=== PATIENT | male | born 1955 | race Two or more races ===

== ENCOUNTER 2020-10-30 07:49 | Day surgery (SDC) | payer BC, SELFPAY ==
[2020-10-26 12:33] VITALS: BMI 31.5
--- NOTE | 2020-10-28 13:53 | P.CONAN_ITS ---
Documented by User: Sharon Matthewsney 10/28/20 13:56 HPI - Anesthesia Eval Consult details Narrative: 64yo M for Colonoscopy [facility] Past Medical History Medical History HTN (hypertension) Surgical History Surgical History History of surgical amputation of finger of right hand Hx of colonoscopy Hx of shoulder surgery Social History Social History Are you a primary disabilities caregiver to a significant other at home: No Do you presently have visiting nurse or other home services: No Have you been hit, kicked, punched, or otherwise hurt by someone within the past year? If so, by whom?: No Advance Directives: No Advance Directives Information Provided: No Advance Directives on File: No Recently lost weight without trying: No Meds Allergies Allergy/AdvReac Type Severity Reaction Status Date / Time No Known Allergies Allergy Verified 10/30/20 08:04 Home Medications Medication Instructions Recorded Confirmed Last Taken Type lisinopril 1 tab PO DAILY 10/26/20 10/26/20 10/30/20 06:30 History uvycqfzpizgv-unooyfho-wujwnc 1 tab PO DAILY 10/26/20 10/26/20 Unknown History [Multivitamin 50 Plus] Exam Exam Date and Time: October 28, 2020 1353 Height,Weight and Vital Signs: Height 5 ft 10 in Weight 99.79 kg Assessment and Plan Assessment Anesthesia Assessment: Chart Reviewed Documented by User: Vitaly Leblanc MD 10/30/20 09:25 [facility] Past Medical History Medical History HTN (hypertension) Surgical History Surgical History History of surgical amputation of finger of right hand Hx of colonoscopy Hx of shoulder surgery Social History Social History Are you a primary disabilities caregiver to a significant other at home: No Do you presently have visiting nurse or other home services: No Have you been hit, kicked, punched, or otherwise hurt by someone within the past year? If so, by whom?: No Advance Directives: No Advance Directives Information Provided: No Advance Directives on File: No Recently lost weight without trying: No Meds Allergies Allergy/AdvReac Type Severity Reaction Status Date / Time No Known Allergies Allergy Verified 10/30/20 08:04 Home Medications Medication Instructions Recorded Confirmed Last Taken Type lisinopril 1 tab PO DAILY 10/26/20 10/26/20 10/30/20 06:30 History xxxwniorornn-aepoghsx-xyxcqu 1 tab PO DAILY 10/26/20 10/26/20 Unknown History [Multivitamin 50 Plus] Exam Airway Mallampati Class: II TM Dist: >3cm Neck ROM: Full Loose/Missing/Broken Teeth: No Heart: RRR Lungs: NL Assessment and Plan Assessment Anesthesia Assessment: Anesthesia Plan Discussed and Chart Reviewed Final Anesthetic Review NPO: Yes ASA Class: II Final Preanesthetic Review: No Changes in Pt Med Stat, Meds/Allgs Chart Re viewed, Consent Obtained/Reviewed and Anes Risks/Benef Reviewed Patient Risk: Low Procedure Risk: Low Anesthetic Plan Anesthetic Plan: MAC: Disposition: Standard PACU
[2020-10-30 08:24] VITALS: BP 147/88; PULSE 74; RESP 18; TEMP 36.8; O2SAT 95
[2020-10-30] MEDS: Lactated Ringers 1,000 ML 100 ML IVCONT (08:27)
[2020-10-30 10:49] VITALS: BP 104/74; PULSE 85; RESP 16; TEMP 36.6; O2SAT 94
--- NOTE | 2020-10-30 10:58 | PM.OP ---
Brief Operative Note Date of Service: 10/30/20 Pre-op diagnosis: Screening Post-op diagnosis: other (Colon polyps) Procedure: Colonoscopy to the cecum with snare polypectomy Surgeon: Alejandro Benson Anesthesia: MAC Estimated blood loss (mL): 0 Pathology: other (A. Proximal ascending colon polyp) Condition: stable Disposition: PACU
[2020-10-30 11:05] VITALS: BP 108/78; PULSE 71; RESP 16; TEMP 36.6; O2SAT 94
--- NOTE | 2020-10-30 11:58 | OP_ITS ---
SURGEON: Alejandro Benson MD INDICATIONS: This patient presents for followup of personal history of tubular adenomas of the colon, family history of colon cancer, and colorectal cancer screening. Full consent was obtained from him for the procedure, including risks of bleeding and perforation. PREOPERATIVE DIAGNOSIS: POSTOPERATIVE DIAGNOSIS: PROCEDURE PERFORMED: Colonoscopy to the cecum with snare polypectomy. ESTIMATED BLOOD LOSS: COMPLICATIONS: ANESTHESIA: Monitored anesthesia care. ASSISTANTS: SPECIMENS: PREOPERATIVE DIAGNOSES: Colorectal cancer screening, personal history of tubular adenoma of the colon, family history of colon cancer. POSTOPERATIVE DIAGNOSES: Colorectal cancer screening, personal history of tubular adenoma of the colon, family history of colon cancer, colon polyps, diverticulosis, and internal hemorrhoids. DESCRIPTION OF PROCEDURE: The patient was placed in the left lateral decubitus position. The digital rectal exam revealed no abnormalities. The Olympus video pediatric colonoscope was entered into the rectum and advanced easily to the cecum. Once in the cecum, I did identify normal-appearing cecal pouch with appendiceal orifice and a normal-appearing ileocecal valve. The entire cecum was well visualized. On a fold adjacent to the inferior portion of the ileocecal valve was a flat approximately 12 mm adenomatous-appearing polyp. It did not appear suspicious for malignancy. In the very proximal ascending colon was an approximately 6 to 8 mm grossly adenomatous polyp, which was snared and recovered by suction. The polypectomy site appeared clean, without any sign of residual polyp nor bleeding. The polyp on the fold adjacent to the inferior portion of the ileocecal valve was very difficult to visualize. It was continuously in the cecum and very difficult to get a look at other than when I was able to pull back on the fold with a biopsy forceps. I opted not to biopsy it as I did want to remove it completely. However, I could not visualize it at all without pulling the fold back with a biopsy forceps. The scope was then slowly withdrawn assessing all mucosal surfaces carefully. Preparation was excellent. I did not visualize any other polyps, colitis, or angiodysplasia. There was a mild amount of sigmoid diverticulosis. In the rectum, scope was retroflexed visualizing internal hemorrhoids, but no other pathology. The scope was straightened and withdrawn from the patient. At that point, I used the double-channel Olympus video gastroscope in hopes of reaching the cecum and then using both the biopsy forceps to pull back on the fold and then being able to use a snare to remove the polyp through the 2 separate channels. The scope was advanced into the rectum and then advanced to the level of just distal to the ileocecal valve. Abdominal wall pressure was used. I did use a biopsy forceps to pull back on the fold near the inferior portion of the ileocecal valve, but could not get close enough with the scope to snare the polyp. A considerable amount of time was spent trying. At that point, the scope was withdrawn from the patient. He tolerated the procedure well and was returned to recovery area in stable condition. IMPRESSION: 1. Colon polyps, status post snare polypectomy of proximal ascending colon polyp, but I was unable to remove the polyp in the cecum. 2. Diverticulosis. 3. Internal hemorrhoids. PLAN: The results of the pathology will be checked. At this point, we will need to reschedule his procedure and obtain a double-channel colonoscope in hopes of removing the flat polyp in the cecum. He was advised not to use any aspirin and NSAIDs for 1 week. This has all been discussed with his . MD QUE Paris/LV / [id number] MTDD
== END 2020-10-30 11:35 | disposition home or self-care (01) ==
PROVIDERS: PCP Internal Medicine; Visit Provider Internal Medicine
PROC: 0DJD8ZZ Inspection of Lower Intestinal Tract, Via Natural or Artificial Opening Endoscopic (ICD-10-PCS; CPT 45378; principal; 2020-10-30 09:00)
DX: Z12.11 Encounter for screening for malignant neoplasm of colon (principal); Z80.0 Family history of malignant neoplasm of digestive organs; Z86.010 Personal history of colon polyps; D12.2 Benign neoplasm of ascending colon; K63.5 Polyp of colon; K57.30 Diverticulosis of large intestine without perforation or abscess without bleeding; K64.8 Other hemorrhoids; I10 Essential (primary) hypertension; Z79.899 Other long term (current) drug therapy
CPT/HCPCS: 45385; 88305; J1610

== ENCOUNTER 2021-02-03 07:12 | Day surgery (SDC) | payer BC, SELFPAY ==
--- NOTE | 2021-02-02 10:58 | P.CONAN_ITS ---
HPI - Anesthesia Eval Consult details Narrative: 65yo M for Colonoscopy s/p colo with MAC 10/2020. Repeat d/t inability to remove flat polyp PMFSH Past Medical History Medical History (Updated 12/04/20 @ 10:41 by Margie Mckeon) History of colon polyps HTN (hypertension) Surgical History Surgical History History of surgical amputation of finger of right hand Hx of colonoscopy Hx of shoulder surgery Social History Social History Are you a primary neonatal intensive care nurse to a significant other at home: No Do you presently have visiting nurse or other home services: No Patient Tobacco Use Status: Never used Tobacco Second Hand Smoke Exposure: No Use of substances other than those prescribed or required for medical reasons: No Are you DNR?: No Advance Directives: No Advance Directives Information Provided: Yes Meds Allergies Allergy/AdvReac Type Severity Reaction Status Date / Time No Known Allergies Allergy Verified 12/04/20 10:32 Home Medications Medication Instructions Recorded Confirmed Last Taken Type lisinopril 1 tab PO DAILY 10/26/20 12/04/20 02/03/21 History eohsddjovdee-sgyxbxwn-sagnpi 1 tab PO DAILY 10/26/20 12/04/20 Unknown History [Multivitamin 50 Plus] Exam Exam Date and Time: February 02, 2021 1058 Assessment and Plan Assessment Anesthesia Assessment: Chart Reviewed
[2021-02-03 07:30] VITALS: BP 128/83; PULSE 76; RESP 16; TEMP 36.7; O2SAT 97; BMI 30.1
[2021-02-03] MEDS: Lactated Ringers 1,000 ML 100 ML IVCONT (07:46)
--- NOTE | 2021-02-03 08:30 | P.CONAN_ITS ---
[facility] Past Medical History Medical History (Updated 12/04/20 @ 10:41 by Margie Mckeon) History of colon polyps HTN (hypertension) Surgical History Surgical History History of surgical amputation of finger of right hand Hx of colonoscopy Hx of shoulder surgery Social History Social History Are you a primary interior plant caretaker to a significant other at home: No Do you presently have visiting nurse or other home services: No Patient Tobacco Use Status: Never used Tobacco Second Hand Smoke Exposure: No Use of substances other than those prescribed or required for medical reasons: No Are you DNR?: No Advance Directives: No Advance Directives Information Provided: Yes Meds Allergies Allergy/AdvReac Type Severity Reaction Status Date / Time No Known Allergies Allergy Verified 12/04/20 10:32 Active Medications: Current Medications Generic Name Dose Route Start Last Admin Trade Name Freq PRN Reason Stop Dose Admin Lactated Ringer's 1,000 mls @ 100 mls/hr 02/03/21 07:30 02/03/21 07:46 Lr IVCONT 100 mls/hr .Q10H JAZMYN Administration Sodium Biphosphate/Sodium Phosphate 133 ml 02/03/21 07:20 Sodium Phosphate,[place]-Dibasic 133 Ml Enema HI ONCE PRN Poor Colonoscopy Prep Results Home Medications Medication Instructions Recorded Confirmed Last Taken Type lisinopril 1 tab PO DAILY 10/26/20 12/04/20 02/03/21 History teejkoxbvkqy-aiktthbw-unyymg 1 tab PO DAILY 10/26/20 12/04/20 Unknown History [Multivitamin 50 Plus] Exam Exam Date and Time: February 03, 2021 0830 Height,Weight and Vital Signs: Height 5 ft 10 in Weight 95.254 kg Last Vital Signs Temp 98.1 F 02/03/21 07:30 Pulse 76 02/03/21 07:30 Resp 16 02/03/21 07:30 BP 128/83 02/03/21 07:30 Pulse Ox 97 02/03/21 07:30 Airway Mallampati Class: III TM Dist: >3cm Neck ROM: Full Heart: RRR Lungs: CTA
[2021-02-03 09:56] VITALS: BP 96/60; PULSE 72; RESP 16; TEMP 36.4; O2SAT 95
--- NOTE | 2021-02-03 10:00 | PM.OP ---
Brief Operative Note Date of Service: 02/03/21 Pre-op diagnosis: Screening Post-op diagnosis: other (Colon polyps) Procedure: Colonoscopy to the cecum and TI with snare polypectomy, and bx/removal of polyps Surgeon: Alejandro Benson Anesthesia: MAC Was an Lumite Injector used for this Procedure?: No Estimated blood loss (mL): 3.0 Pathology: other (A. Cecal polyp B. Transverse colon polyp C. Cecal polyp alongside inferior portion of ICVV) Condition: stable Disposition: PACU
[2021-02-03 10:10] VITALS: BP 119/85; PULSE 86; RESP 16; TEMP 36.4; O2SAT 96
--- NOTE | 2021-02-03 10:33 | OP_ITS ---
SURGEON: Alejandro Benson MD INDICATIONS: The patient presents for followup of personal history of tubular adenoma of the colon and family history of colon cancer. He did have a colonoscopy earlier this year and a polyp was seen in the cecum, but was unable to be removed. Full consent has been obtained from him for this, including risks of bleeding and perforation. PREOPERATIVE DIAGNOSIS: POSTOPERATIVE DIAGNOSIS: PROCEDURE PERFORMED: ESTIMATED BLOOD LOSS: COMPLICATIONS: ANESTHESIA: Medication used, monitored anesthesia care. ASSISTANTS: SPECIMENS: PREOPERATIVE DIAGNOSES: Personal history of tubular adenoma of the colon, colorectal cancer screening, and family history of colon cancer. POSTOPERATIVE DIAGNOSES: Personal history of tubular adenoma of the colon, colorectal cancer screening, and family history of colon cancer, colon polyps, diverticulosis, and internal hemorrhoids. PROCEDURES PERFORMED: Colonoscopy to the cecum and terminal ileum with snare polypectomy, and biopsy and removal of polyps. DESCRIPTION OF PROCEDURE: The patient was placed in the left lateral decubitus position. The digital rectal exam revealed no abnormalities. The Olympus video pediatric colonoscope was fitted with the Endocuff. The scope was advanced into the rectum and advanced easily into the cecum. Once in the cecum, I did identify cecal pouch with appendiceal orifice. There was a 3 mm polyp in the cecum, which was biopsied and completely removed with cold biopsy forceps. The ileocecal valve appeared normal. The terminal ileum was cannulated and appeared normal. I was then able to visualize the previously known polyp in the cecum, on the inside of a fold adjacent to the inferior portion of the ileocecal valve. The polyp was well visualized and appeared to be grossly adenomatous. It was approximately 10 to 12 mm in diameter and was then snared and recovered by suction. The polypectomy site appeared clean, without any sign of residual polyp nor bleeding. The scope was slowly withdrawn assessing all mucosal surfaces carefully. Preparation was excellent. In the transverse colon was a 3 mm polyp, which was biopsied and completely removed with cold biopsy forceps. I did not visualize any other polyps, colitis, or angiodysplasia. There was a mild amount of sigmoid diverticulosis. In the rectum, scope was retroflexed visualizing internal hemorrhoids, but no other pathology. The rectal mucosa appeared normal. The scope was straightened out and withdrawn from the patient. He tolerated the procedure well and was returned to the recovery area in stable condition. IMPRESSION: 1. Colon polyps, status post snare polypectomy, and biopsy removal. 2. Diverticulosis. 3. Internal hemorrhoids. PLAN: The results of the pathology will be checked. Given his history and family history, I would recommend a repeat colonoscopy in 3 years for further surveillance. He was advised not to use any aspirin and NSAIDs for 1 week. This has been discussed with his . MD QUE Paris/LV / [id number]
== END 2021-02-03 11:00 | disposition home or self-care (01) ==
PROVIDERS: PCP Internal Medicine; Visit Provider Internal Medicine
PROC: 0DJD8ZZ Inspection of Lower Intestinal Tract, Via Natural or Artificial Opening Endoscopic (ICD-10-PCS; CPT 45378; principal; 2021-02-03 08:20)
DX: Z12.11 Encounter for screening for malignant neoplasm of colon (principal); Z86.010 Personal history of colon polyps; Z80.0 Family history of malignant neoplasm of digestive organs; D12.0 Benign neoplasm of cecum; D12.3 Benign neoplasm of transverse colon; K57.30 Diverticulosis of large intestine without perforation or abscess without bleeding; K64.8 Other hemorrhoids; I10 Essential (primary) hypertension; Z79.899 Other long term (current) drug therapy
CPT/HCPCS: 45385; 45380; 88305

== ENCOUNTER → 2021-02-18 13:51 | Outpatient (REF) | payer BC, SELFPAY ==
--- NOTE | 2021-02-18 14:00 | CA_ITS ---
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 The visually estimated ejection fraction is >70%. - No obvious valvular pathology seen on this study. - There is mild dilatation of the ascending aorta measuring 4.10 cm and mild dilatation of the aortic arch measuring 3.60 cm. Findings Left Ventricle Normal left ventricular cavity size. There is mildly increased left ventricular wall thickness. The left ventricular systolic function is hyperdynamic. The visually estimated ejection fraction is >70%. There is no evidence of regional wall motion abnormalities. Diastolic function is normal for age. Right Ventricle Normal right ventricular cavity size and systolic function. Atria Both atria are normal in size. Aortic Valve There is a normal trileaflet aortic valve. There is no aortic valve stenosis. There is no aortic valve regurgitation. Mitral Valve The mitral valve appears normal. There is no mitral valve regurgitation. There is no mitral valve stenosis. Pulmonic Valve The pulmonic valve was not well visualized. Tricuspid Valve Normal tricuspid valve structure. There is mild tricuspid valve regurgitation. The pulmonary artery systolic pressure is normal. Great Vessels There is mild dilatation of the ascending aorta measuring 4.10 cm and mild dilatation of the aortic arch measuring 3.60 cm. Venous The inferior vena cava is normal in size and collapses greater than 50% with inspiration. Pericardium/Pleural There is no evidence of pericardial effusion. Prior Study Comparison Changes noted compared to prior study dated: 11/10/2008. Change in aortic dimensions. Recommendations, Care & Conclusions No obvious valvular pathology seen on this study. Measurements 2D Linear Measurements IVSd: 1.19 0.6-0.9/0.6-1.0 cm LVIDd: 5.22 3.9-5.3/4.2-5.9 cm LVIDd Index: 2.47 2.4-3.2/2.2-3.1 cm/m2 LVIDs: 2.85 2.0-3.6 cm LVPWd: 1.20 0.7-1.1 cm Ao Root: 3.60 2.1-3.5 cm LA Diam: 4.00 2.7-3.8/3.0-4.0 cm LAIDs Index: 1.90 1.5-2.3 cm/m2 LV Mass: 310.41 67-162/88-224 g LV Mass Index: 147.12 43-95/49-115 g/m2 LVOT Diam: 2.30 3.0+(-)1.3 cm 2D Systolic Function EF 4C: 67.20 >55% EF 2C: 53.40 >55% Mitral Valve MV Pk E: 0.58 MV PK A: 0.58 MV Decel Time: 235.00 E/A: 1.00 E'Lateral: 9.68 E'Medial: 6.96 E/E' Med: 8.30 E/E' Lat: 5.90 PHT: 69.00 MVA PHT: 3.19 Decel Glascock: 2.44 Aortic Valve AoV Pk Jose: 1.66 AoV Pk Grad: 11.00 LVOT LVOT Pk Jose: 1.38 LVOT Mn Jose: 0.92 LVOT VTI: 0.27 LVOT Pk Grad: 8.00 LVOT Mn Grad: 4.00 LVOT Diam: 2.30 LVOT Area: 4.15 Diastolic Function MV Pk E: 0.58 MV Pk A: 0.58 E/A: 1.00 E'Medial: 6.96 E/E' Med: 8.30 E' Laterial: 9.68 E/E' Lat: 5.90 Right Ventricle TAPSE (mm): 3.13 Tricuspid Valve TR Pk Jose: 2.22 TR Pk Grad: 20.00 RA Press: 3.00 RVSP: 23.00 Great Vessels Aorta Ao Root-2D: 3.60 2.0-3.7 cm Ao Asc: 4.10 2.1-3.4 cm Ao Arch: 3.60 Updated in Other Vendor System with Status of Final Alexandre Mcconnell MD electronically signed on 02/18/2021 3:53:43 PM with status of Final
== END ==
LOC: HO.CARD 13:51
PROVIDERS: PCP Internal Medicine; Visit Provider Internal Medicine
DX: I77.819 Aortic ectasia, unspecified site (principal)
CPT/HCPCS: 93306

== ENCOUNTER 2021-07-23 14:05 | Outpatient (REF) | payer BC, SELFPAY ==
[2021-07-30 13:15] LABS: Influenza A RNA Ref NOT DETECTED; Influenza B RNA Ref NOT DETECTED; SARS CoV2 RNA Ref NOT DETECTED
== END 2021-07-23 14:06 | disposition home or self-care (01) ==
LOC: HO.LNP 14:05
PROVIDERS: Visit Provider Internal Medicine
DX: Z13.89 Encounter for screening for other disorder (principal)

== ENCOUNTER 2021-08-13 06:57 | Outpatient (REF) | payer BC, SELFPAY ==
[2021-08-13 07:06] LABS: MANUAL DIFF FLAG NO
[2021-08-13 07:50] LABS: Basophils Percent Auto 0.4 % (0-2); Eosinophils Absolute Auto 0.1 X10*3/uL (0.0-0.4); Eosinophils Percent Auto 2.3 % (0-4); Hematocrit 40.7 % (42.0-52.0); Hemoglobin 13.3 g/dl (14.0-18.0); Imm Gran Abs Auto 0.02 X10*3/uL (0.00-0.03); Imm Gran Pct Auto 0.4 % (0.0-0.4); Lymphocytes Absolute Auto 1.7 X10*3/uL (1.2-4.9); Lymphocytes Percent Auto 30.6 % (20-40); Mean Corpuscular HGB Conc 32.7 g/dl (31.0-36.0); Mean Corpuscular Hemoglobin 29.2 pg (27.0-33.0); Mean Corpuscular Volume 89.5 fL (80.0-98.0); Mean Platelet Volume 9.9 fL (9.4-12.4); Monocytes Absolute Auto 0.6 X10*3/uL (0.1-1.2); Monocytes Percent Auto 10.9 % (2-11); Neutrophils Absolute Auto 3.1 x10*3/uL (2.0-8.3); Neutrophils Percent Auto 55.4 % (45-73); Platelet Count 344 X10*3/uL (160-400); Red Blood Count 4.55 X10*6/uL (4.60-5.80); Red Cell Distribution Width 15.4 % (11.0-16.0); White Blood Count 5.6 X10*3/uL (4.8-10.8)
[2021-08-13 08:07] LABS: Alanine Aminotransferase 23 U/L (0-40); Albumin Level 4.2 g/dL (3.5-5.0); Alkaline Phosphatase 67 U/L (39-117); Anion Gap 13 (12-20); Aspartate Amino Transferase 41 U/L (5-37); Bilirubin Total 0.8 mg/dL (0.0-1.0); Blood Urea Nitrogen 18 mg/dL (9-16); Calcium 9.5 mg/dL (8.4-10.2); Carbon Dioxide 26 mmol/L (22-29); Chloride 105 mmol/L (96-108); Cholesterol 194 mg/dL; Estimated Glomerular Filt Rate > 60; Glucose Fasting 105 mg/dL (60-99); HDL Cholesterol 53 mg/dL; LDL Cholesterol Calculated 124 mg/dl; Potassium 4.5 mmol/L (3.3-5.1); Sodium 139 mmol/L (135-145); Total Protein 7.1 g/dL (6.5-8.0); Triglycerides 87 mg/dL
== END 2021-08-13 06:58 | disposition home or self-care (01) ==
LOC: HO.LAB 06:57
PROVIDERS: PCP Internal Medicine; Visit Provider Internal Medicine
DX: I10 Essential (primary) hypertension (principal); E78.00 Pure hypercholesterolemia, unspecified; R35.1 Nocturia
CPT/HCPCS: 36415; 80053; 80061; 85025

== ENCOUNTER 2021-08-20 14:45 | Outpatient (REF) | payer BC, SELFPAY ==
[2021-08-20 15:59] LABS: Prostate Specific Antigen < 0.05 ng/mL (<0.05-4.0)
== END 2021-08-20 14:46 | disposition home or self-care (01) ==
LOC: HO.LAB 14:45
PROVIDERS: PCP Internal Medicine; Visit Provider Internal Medicine
DX: Z12.5 Encounter for screening for malignant neoplasm of prostate (principal)
CPT/HCPCS: 36415; 84153

== ENCOUNTER 2022-06-08 09:00 | Outpatient (REF) | payer BC, SELFPAY ==
[2022-06-08 11:35] LABS: Prostate Specific Antigen Scr < 0.10 ng/mL (<0.05-4.0)
== END 2022-06-08 09:01 | disposition home or self-care (01) ==
LOC: HO.10HDL 09:00
PROVIDERS: Visit Provider Internal Medicine
DX: Z12.5 Encounter for screening for malignant neoplasm of prostate (principal)
CPT/HCPCS: 36415; 84153

== ENCOUNTER 2023-05-18 08:19 | Outpatient (REF) | payer MEDICARE, SELFPAY ==
[2023-05-18 10:34] LABS: MANUAL DIFF FLAG NO
[2023-05-18 10:37] LABS: Basophils Percent Auto 0.6 % (0-2); Eosinophils Absolute Auto 0.2 X10*3/uL (0.0-0.4); Eosinophils Percent Auto 3.9 % (0-4); Hematocrit 42.3 % (42.0-52.0); Imm Gran Abs Auto 0.03 X10*3/uL (0.00-0.03); Imm Gran Pct Auto 0.6 % (0.0-0.4); Lymphocytes Absolute Auto 1.5 X10*3/uL (1.2-4.9); Lymphocytes Percent Auto 30.3 % (20-40); Mean Corpuscular HGB Conc 33.1 g/dl (31.0-36.0); Mean Corpuscular Hemoglobin 32.7 pg (27.0-33.0); Mean Corpuscular Volume 98.8 fL (80.0-98.0); Mean Platelet Volume 10.4 fL (9.4-12.4); Monocytes Absolute Auto 0.5 X10*3/uL (0.1-1.2); Monocytes Percent Auto 10.7 % (2-11); Neutrophils Absolute Auto 2.6 x10*3/uL (2.0-8.3); Neutrophils Percent Auto 53.9 % (45-73); Platelet Count 263 X10*3/uL (160-400); Red Blood Count 4.28 X10*6/uL (4.60-5.80); Red Cell Distribution Width 14.1 % (11.0-16.0); White Blood Count 4.9 X10*3/uL (4.8-10.8)
[2023-05-18 11:00] LABS: Alanine Aminotransferase 18 U/L (0-40); Albumin Level 4.3 g/dL (3.5-5.0); Alkaline Phosphatase 42 U/L (39-117); Anion Gap 10 (12-20); Aspartate Amino Transferase 16 U/L (5-37); Bilirubin Total 0.7 mg/dL (0.0-1.0); Blood Urea Nitrogen 15 mg/dL (9-16); Calcium 9.2 mg/dL (8.4-10.2); Carbon Dioxide 27 mmol/L (22-29); Chloride 110 mmol/L (96-108); Cholesterol 219 mg/dL (<200); Estimated Glomerular Filt Rate > 60; Glucose Fasting 107 mg/dL (60-99); HDL Cholesterol 75 mg/dL (>40); LDL Cholesterol Calculated 121 mg/dL (<100); Potassium 4.1 mmol/L (3.3-5.1); Sodium 143 mmol/L (135-145); Total Protein 6.9 g/dL (6.5-8.0); Triglycerides 115 mg/dL (<150)
[2023-05-19 09:09] LABS: Lyme Abs Screen <0.90 index
== END 2023-05-18 08:20 | disposition home or self-care (01) ==
LOC: HO.10HDL 08:19
PROVIDERS: Visit Provider Internal Medicine
DX: I10 Essential (primary) hypertension (principal); G47.33 Obstructive sleep apnea (adult) (pediatric); Z85.9 Personal history of malignant neoplasm, unspecified
CPT/HCPCS: 36415; 80053; 80061; 85025; 86617; 86618

== ENCOUNTER 2023-05-23 07:46 | Outpatient (REF) | payer MEDICARE, SELFPAY ==
[2023-05-25 04:53] LABS: Lyme Abs Screen <0.90 index
== END 2023-05-23 07:47 | disposition home or self-care (01) ==
LOC: HO.10HDL 07:46
PROVIDERS: Visit Provider Internal Medicine
DX: T14.8XXA Other injury of unspecified body region, initial encounter (principal); W57.XXXA Bitten or stung by nonvenomous insect and other nonvenomous arthropods, initial encounter
CPT/HCPCS: 36415; 86617; 86618

== ENCOUNTER 2024-04-10 09:36 | Outpatient (REF) | payer MEDICARE, SELFPAY ==
[2024-04-10 09:58] LABS: MANUAL DIFF FLAG NO
[2024-04-10 10:04] LABS: Basophils Percent Auto 0.2 % (0-2); Eosinophils Absolute Auto 0.1 X10*3/uL (0.0-0.4); Eosinophils Percent Auto 1.2 % (0-4); Hematocrit 41.6 % (42.0-52.0); Hemoglobin 14.1 g/dl (14.0-18.0); Imm Gran Abs Auto 0.04 X10*3/uL (0.00-0.03); Imm Gran Pct Auto 0.7 % (0.0-0.4); Lymphocytes Absolute Auto 1.5 X10*3/uL (1.2-4.9); Lymphocytes Percent Auto 27.3 % (20-40); Mean Corpuscular HGB Conc 33.9 g/dl (31.0-36.0); Mean Corpuscular Hemoglobin 32.3 pg (27.0-33.0); Mean Corpuscular Volume 95.2 fL (80.0-98.0); Mean Platelet Volume 9.7 fL (9.4-12.4); Monocytes Absolute Auto 0.5 X10*3/uL (0.1-1.2); Monocytes Percent Auto 9.6 % (2-11); Neutrophils Absolute Auto 3.5 x10*3/uL (2.0-8.3); Platelet Count 254 X10*3/uL (160-400); Red Blood Count 4.37 X10*6/uL (4.60-5.80); Red Cell Distribution Width 14.3 % (11.0-16.0); White Blood Count 5.7 X10*3/uL (4.8-10.8)
[2024-04-10 10:47] LABS: Alanine Aminotransferase 21 U/L (0-40); Albumin Level 4.4 g/dL (3.5-5.0); Alkaline Phosphatase 56 U/L (39-117); Anion Gap 11 (12-20); Aspartate Amino Transferase 16 U/L (5-37); Bilirubin Total 0.7 mg/dL (0.0-1.0); Blood Urea Nitrogen 16 mg/dL (9-16); Calcium 9.6 mg/dL (8.4-10.2); Carbon Dioxide 26 mmol/L (22-29); Chloride 107 mmol/L (96-108); Cholesterol 266 mg/dL (<200); Estimated Glomerular Filt Rate > 60; Glucose Random 91 mg/dL (60-115); Potassium 4.3 mmol/L (3.3-5.1); Sodium 140 mmol/L (135-145); Total Protein 7.2 g/dL (6.5-8.0)
[2024-04-10 10:50] LABS: Prostate Specific Antigen Scr < 0.10 ng/mL (<0.05-4.0)
== END 2024-04-10 09:37 | disposition home or self-care (01) ==
LOC: HO.10HDL 09:36
PROVIDERS: Visit Provider Internal Medicine
DX: Z12.5 Encounter for screening for malignant neoplasm of prostate (principal); I10 Essential (primary) hypertension
CPT/HCPCS: 36415; 80053; 82465; 84153; 85025

== ENCOUNTER 2024-04-26 08:10 | Outpatient (REF) | payer MEDICARE, SELFPAY ==
[2024-04-26 11:05] LABS: Cholesterol 237 mg/dL (<200); HDL Cholesterol 75 mg/dL (>40); LDL Cholesterol Calculated 140 mg/dL (<100); Triglycerides 111 mg/dL (<150)
== END 2024-04-26 08:11 | disposition home or self-care (01) ==
LOC: HO.10HDL 08:10
PROVIDERS: Visit Provider Internal Medicine
DX: E78.00 Pure hypercholesterolemia, unspecified (principal)
CPT/HCPCS: 36415; 80061

== ENCOUNTER 2024-09-06 10:53 | Day surgery (SDC) | payer MEDICARE, SELFPAY ==
[2024-09-04 15:22] VITALS: BMI 29.7
[2024-09-06 11:14] VITALS: BP 130/87; PULSE 81; RESP 14; TEMP 36.9; O2SAT 96; BMI 29.4
[2024-09-06] MEDS: Lactated Ringers 1,000 ML 80 ML IVCONT (11:24)
--- NOTE | 2024-09-06 11:25 | HO.ANESPROP2 ---
HPI - Anesthesia Eval Consult details Narrative: colon screen [facility] Past Medical History Medical History History of colon polyps HTN (hypertension) Family History Family history of problems with anesthesia: No Surgical History Surgical History History of surgical amputation of finger of right hand Hx of shoulder surgery Hx of colonoscopy History of Problems with Anesthesia: No Social History Social History Are you a primary child caregiver private home to a significant other at home: No Do you presently have visiting nurse or other home services: No Patient Tobacco Use Status: Never used Tobacco Second Hand Smoke Exposure: No Use of substances other than those prescribed or required for medical reasons: No Have you been hit, kicked, punched, or otherwise hurt by someone within the past year? If so, by whom?: No Are you DNR?: No Advance Directives: No Advance Directives Information Provided: Yes Recently lost weight without trying: No Nutrition Risks: No Nutritional Risk Poor oral hygiene: No Meds Allergies Allergy/AdvReac Type Severity Reaction Status Date / Time No Known Allergies Allergy Verified 09/06/24 11:08 Active Medications: Current Medications Lactated Ringer's (Lr) 1,000 mls @ 80 mls/hr IVCONT .[id number] [facility] Last Admin: 09/06/24 11:24 Dose: 80 mls/hr Sodium Biphosphate/Sodium Phosphate (Sodium Phosphate,[place]-Dibasic 133 Ml Enema) 133 ml ID ONCE PRN PRN Reason: Poor Colonoscopy Prep Results Home Medications ?Medication ?Instructions ?Recorded ?Confirmed ?Last Taken ?Type lisinopril 10 mg tablet 1 tab PO DAILY 10/26/20 09/06/24 09/05/24 History espxivhdyuma-sqytfyaf-xzsdig 1 tab PO DAILY 10/26/20 09/06/24 09/05/24 History tablet (Multivitamin 50 Plus tablet) Exam Height,Weight and Vital Signs: Height 5 ft 10 in Weight 92.986 kg Last Vital Signs Temp 98.4 F 09/06/24 11:14 Pulse 81 09/06/24 11:14 Resp 14 09/06/24 11:14 BP 130/87 09/06/24 11:14 Pulse Ox 96 09/06/24 11:14 O2 Del Method Room Air 09/06/24 11:14 Airway Mallampati Class: II TM Dist: >3cm Neck ROM: Full Heart: rrr Lungs: cta Assessment and Plan Assessment Anesthesia Assessment: Anesthesia Plan Discussed and Chart Reviewed Final Anesthetic Review Family History of Problems with Anesthesia: No History of Problems with Anesthesia: No NPO: Yes ASA Class: II Final Preanesthetic Review: No Changes in Pt Med Stat, Meds/Allgs Chart Reviewed, Consent Obtained/Reviewed and Anes Risks/Benef Reviewed Patient Risk: Low Procedure Risk: Low Anesthetic Plan Anesthetic Plan: MAC: Disposition: Standard PACU
[2024-09-06 13:24] VITALS: BP 110/81; PULSE 80; RESP 12; TEMP 36.5; O2SAT 97
--- NOTE | 2024-09-06 13:30 | P.BOP_ITS ---
Brief Operative Note Date of Service: 09/06/24 Pre-op diagnosis: Screening Post-op diagnosis: other (Polyp) Procedure: Colonoscopy to the cecum and TI with bx/removal of polyp Surgeon: Alejandro Benson MD Anesthesia: MAC Was an Automatic Grinding Machine Operator used for this Procedure?: No Estimated blood loss (mL): 2.0 Pathology: other (A. Transverse colon polyp) Condition: stable Disposition: PACU
[2024-09-06 13:39] VITALS: PULSE 75; RESP 15; TEMP 36.9; O2SAT 98
--- NOTE | 2024-09-06 23:48 | OP_ITS ---
DATE OF SERVICE: 09/06/2024 SURGEON: Alejandro Benson MD INDICATIONS: The patient presents for evaluation of personal history of tubular adenoma of the colon, family history of colon cancer, and colorectal cancer screening. Full consent obtained from him for this, including risks of bleeding and perforation. PREOPERATIVE DIAGNOSIS: Colorectal cancer screening, personal history of tubular adenoma of the colon, and family history of colon cancer. POSTOPERATIVE DIAGNOSIS: PROCEDURE PERFORMED: Colonoscopy to the cecum and terminal ileum with biopsy and removal of polyp. ESTIMATED BLOOD LOSS: COMPLICATIONS: ANESTHESIA: Monitored anesthesia care. ASSISTANTS: SPECIMENS: POSTOPERATIVE DIAGNOSES: Colorectal cancer screening, personal history of tubular adenoma of the colon, family history of colon cancer, small colon polyp, diverticulosis, and internal hemorrhoids. DESCRIPTION OF PROCEDURE: The patient was placed in the left lateral decubitus position. The digital rectal exam revealed no abnormalities. The Olympus video pediatric colonoscope was entered into the rectum and advanced easily to the cecum. Once in the cecum, I did identify normal-appearing cecal pouch with appendiceal orifice and a normal-appearing ileocecal valve. The terminal ileum was cannulated and appeared normal. The scope was withdrawn back in the colon. The entire cecum and ileocecal valve appeared normal. The scope was slowly withdrawn assessing all mucosal surfaces carefully. Preparation was excellent. In the transverse colon was a flat, approximately 3 mm polyp, which was biopsied and completely removed with cold biopsy forceps. I did not visualize any other polyps, colitis, nor angiodysplasia. There was a mild amount of sigmoid diverticulosis. In the rectum, scope was retroflexed, visualizing internal hemorrhoids, but no other pathology. The rectal mucosa appeared normal. The scope was straightened and withdrawn from the patient. He tolerated the procedure well and was returned to recovery area in stable condition. IMPRESSION: 1. Colon polyp. 2. Diverticulosis. 3. Internal hemorrhoids. PLAN: The results of the biopsy will be checked. Given his previous history, family history, and today's findings, I would recommend a repeat colonoscopy in 3 years for further screening and surveillance. He will otherwise see me on a p.r.n. basis. MD QUE [place]/LV / [phone]
== END 2024-09-06 13:59 | disposition home or self-care (01) ==
PROVIDERS: PCP Internal Medicine; Visit Provider Internal Medicine
PROC: 0DJD8ZZ Inspection of Lower Intestinal Tract, Via Natural or Artificial Opening Endoscopic (ICD-10-PCS; CPT 45378; principal; 2024-09-06 13:00)
DX: Z12.11 Encounter for screening for malignant neoplasm of colon (principal); Z80.0 Family history of malignant neoplasm of digestive organs; Z86.0101 Personal history of adenomatous and serrated colon polyps; D12.3 Benign neoplasm of transverse colon; K57.30 Diverticulosis of large intestine without perforation or abscess without bleeding; K64.8 Other hemorrhoids; I10 Essential (primary) hypertension; Z79.899 Other long term (current) drug therapy; Z98.890 Other specified postprocedural states
CPT/HCPCS: 45380; 88305; J2704

== ENCOUNTER 2025-03-18 07:53 | Outpatient (AMB) | payer MEDICARE, SELFPAY ==
--- OUTSIDE RECORDS SUMMARY | 2024-09-06 09:00 | XMS_ITS ---
Author Organization [facility] Address [address] [place] [id number] Care Team Providers Care Lens Polisher Name Role Phone Fred (RETIRED) Rios YANCEY Primary Care Provide Alejandro Spicer [phone] REASON FOR VISIT screening, hx polyps,fam hx colon ca Encounters Encounter Location Date Provider Diagnosis [facility] Outpatient [address] [place] [phone] 09/06/2024 Alejandro Benson Colon cancer scree gabe Z12.11 ; Personal history of colonic polyps Z86.0100 ; Family history of colon cancer Z80.0 ; Colon polyps K63.5 and Diverticulosis of large intestine without perforation or abscess without bleeding K57.30 Assessments Encounter Date Diagnosis (ICD Code) Assessment Notes Treatment Notes Treatment Clinical Notes Section Notes 09/06/2024 Colon cancer screening (ICD-10 - Z12.11) 09/06/2024 Personal history of colonic polyps (ICD-10 - Z86.0100) 09/06/2024 Family history of colon cancer (ICD-10 - Z80.0) 09/06/2024 Colon polyps (ICD-10 - K63.5) 09/06/2024 Diverticulosis of large intestine without perforation or abscess without bleeding (ICD-10 - K57.30) Plan Of Treatment No Information Progress Notes * STEFFI BUENROSTRODOB:[birth year] (69 yo M)Acc No.[id number]:09/06/2024 COLON WITH MAC Patient: STEFFI EVERETT Provider: Eugenia Benson MD :1955 A ge:68 Y S ex:Male Date:09/06/2024 Address:[address] [place], [place] [phone] Pcp:Rios Ibarra (RETIRED )MD Subjective: * Chief Complaints: * 1 . Screening, hx polyps,fam hx colon ca. * Medical History: Objective: * Vitals: Assessment: * Assessment: 1. C olon cancer screening - Z12.11 (Primary) 2 . P ersonal history of colonic polyps - Z86.0100 3 . F amily history of colon cancer - Z80.0 ?4. C olon polyps - K63.5 5 . D iverticulosis of large intestine without perforation or abscess without bleeding - K57.30 Plan: * Treatment: * Procedure Codes: 4 5380 COLONOSCOPY AND BIOPSY, Modifiers: PT * * The named appointment provid er may or may not be the originator of this progress note, and it is not deemed complete until electronically signed by the appointment provider. Sign off status: Pending * Provider: Eugenia Benson MD Date: 0 09/06/2024 Generated for Andrew ritchie/Chayito/eTransmitting on: 0 03/18/2025 07:56 AM EDT
--- NOTE | 2025-03-18 07:54 | A.OFFPC_ITS ---
Vital Signs 03/18/25 07:58 Height 5 ft 10 in Weight 219 lb BMI 31.4 BP 150/82 H Blood Pressure Location Rt brachial Position Sitting Respiration 17 Pulse 78 Pulse Source Pulse Oximeter Temp 98.3 F Pulse Oximetry (%) 95 Oxygen Delivery Method Room Air Intake Visit Reasons: Annual [place] Car Attendant Required: No Accompanied by: Self / Same As Patient Allergies No Known Allergies Allergy (Verified 03/18/25 07:54) Tobacco use date assessed: 03/18/25 [facility] Medical History (Updated 03/18/25 @ 08:17 by Emory Ng MD) History of colon polyps HTN (hypertension) Surgical History (Updated 03/13/25 @ 16:28 by Mary Lima) History of surgical amputation of finger of right hand Hx of shoulder surgery Hx of colonoscopy (~09/06/24) Social History Housing: House Are you a primary care team assistant to a significant other at home: No Do you presently have visiting nurse or other home services: No Patient Tobacco Use Status: Never used Tobacco e-Cigarette/Vaping Use: Never Used Second Hand Smoke Exposure: No service: No Current occupational status: retired Questionnaire PHQ-9 Over the last 2 weeks, how often have you been bothered by any of the following problems? 1. Little interest or pleasure in doing things: not at all 2. Feeling down, depressed, or hopeless: not at all 3. Trouble falling or staying asleep, or sleeping too much: not at all 4. Feeling tired or having little energy: not at all 5. Poor appetite or overeating: not at all 6. Feeling bad about yourself - or that you are a failure or have let yourself or your family down: not at all 7. Trouble concentrating on things, such as reading the newspaper or watching television: not at all 8. Moving or speaking so slowly that other people could have noticed. Or the opposite - being so fidgety or restless that you have been moving around a lot more than usual: not at all 9. Thoughts that you would be better off or of hurting yourself in some way: not at all Total score: 0 Depression Screening Interpretation: Negative Depression Screening Done: Yes 09574 - PHQ-9 Billing: Yes Source: Developed by Drs. Alejandro Chong, Charis Sanabria, Farhad Vicente and colleagues, with an educational jordan from [employer]. Thrive Questionnaire Date Thrive assessed: 03/18/25 I am a: Patient What is your living situation today?: I have a steady place to live Within the past 12 months, did the food you bought not last and you didn't have the money to get more?: Never true Within the past 12 months, did you worry whether your food would run out before you got money to buy more?: Never true Do you have trouble paying for medicines?: No Do you have trouble getting transportation to medical appointments?: No Do you have trouble paying your heating and electricity bill?: No Do you have trouble taking care of your child, family member or friend?: No Do you have trouble with day-to-day activities such as bathing, preparing meals, shopping, managing finances, etc.?: No Are you currently unemployed and looking for a job?: No Are you interested in more education?: No THRIVE Score: 0 AUDIT C Alcohol Use Questionnaire (AUDIT-C) 1. How often do you have a drink containing alcohol?: 2-4 times a month 2. How many drinks containing alcohol do you have on a typical day when you are drinking?: 3 or 4 3. How often do you have six or more drinks on one occasion?: Never Total Score: 3 CHERY-7 AMB Questionnaire CHERY-7 Date CHERY - 7 assessed: 03/18/25 Feeling nervous, anxious, or on edge: 0 = Not at all Not being able to stop or control worryin = Not at all Worrying too much about different things: 0 = Not at all Trouble relaxin = Not at all Being so restless that it is hard to sit still: 0 = Not at all Becoming easily annoyed or irritable: 0 = Not at all Feeling afraid as if something awful might happen: 0 = Not at all Total CHERY-7 score (0-4 normal; 5-9 mild; 10-14 moderate; 15-21 severe): 0 Source: Developed by Drs. Alejandro Chong, Farhad Pan and colleagues, with an educational jordan from [employer]. CHERY-7 Assessment Billing CHERY-7 Assessment Tool: CHERY-7 Assessment 66265 Physical exam (Primary Care) Vital Signs: Last Vital Signs Temp 98.3 F 03/18/25 07:58 Pulse 78 03/18/25 07:58 Resp 17 03/18/25 07:58 BP 150/82 H 03/18/25 07:58 Pulse Ox 95 03/18/25 07:58 Oxygen Delivery Method Room Air 03/18/25 07:58 BMI result Body Mass Index 31.4 Tobacco/Smoking Status: Tobacco use Status Tobacco use date assessed 03/18/25 03/18/25 08:02 Patient Tobacco Use Status Never used Tobacco 03/18/25 08:02 e-Cigarette/Vaping Use Never Used 03/18/25 08:02 Depression Screening Interpretation: Negative Coding Level of Care Code New Pt Level 4 (31758) New Pt Prev Care >65yr (37481) Diagnoses HTN (hypertension) I10 Prostate CA C61 Additional Codes PHQ-9 - 01678 - PHQ-9 Billing: Yes ([id number]) CHERY-7 Assessment Billing - CHERY-7 Assessment Tool: CHERY-7 Assessment 86144 ([id number]) Assessment & Plan Assessment & Plan (1) HTN (hypertension): Comment: Elevated pressures on lisinorpil 10 Code(s): I10 - Essential (primary) hypertension Category: Medical Plan: History of Present Illness The patient is a 69-year-old male presenting with calf pain. The discomfort began after an incident on Monday when he was chasing his grandkids and felt a pop in the back of his calf. The patient reports that the pain is localized to the calf area and is tender upon palpation. He has been managing the pain with ice and heat applications but continues to have difficulty walking, noting that he is limping. He denies the presence of swelling. He states that the pain is sore when pressure is applied. He did not report any events or symptoms such as nausea, vomiting, chest pain, shortness of breath, headaches, or significant changes in his urinary or gastrointestinal habits. Medical History: - Essential hypertension, the patient notes recent blood pressure reading of 150/80 mmHg - History of prostate cancer, prostate removal in 2016 - Fracture of L1 and L5 vertebrae, history - History of shoulder surgeries with subsequent evaluation for cardiac implications and echocardiogram in 2020 Surgical History: - Prostate removal surgery in 2016 - Two shoulder surgeries due to injury and complications Medications: - Antihypertensive medication, unspecified type, 10 mg dosage Family History: - Mother had melanoma - Father had emphysema - No family history of heart disease or diabetes noted Health Maintenance - Regular monitoring of blood pressure at home suggested COVID: Tetanus (Every 10 years): Shingrix (50+): Colonoscopy (45-75): HIV (15-65), Syphillis, Hep C: Pap Smear: LDCT: Social History - Lives with his Alyssa - Reports social alcohol use, consuming about three beers on Saturdays - Non-smoker, denies any illegal drug use - Engages in regular exercise, including use of a Stairmaster and caring for grandchildren Review of Systems - Musculoskeletal: Reports calf pain, denies other joint pain - Neurological: Denies headaches - Respiratory: Denies shortness of breath, coughing, or coughing up blood - Cardiovascular: Denies chest pain - Gastrointestinal: Denies nausea, vomiting, diarrhea, constipation, or abdominal pain - Genitourinary: Denies burning with urination; reports normal urination - Psychological: Denies depression, anxiety, or thoughts of self-harm Constitutional: No fever, chills, sweats, weakness, or fatigue. Appetite is normal. Eye: No blurring of vision or double vision. No icterus. Ear/Nose/Mouth/Throat: No sore throat or nasal congestion. Respiratory: No shortness of breath, cough, wheezing. Cardiovascular: No chest pain, palpitations or peripheral edema. Gastrointestinal: No nausea, vomiting, diarrhea, constipation, or abdominal pain Genitourinary: no dysuria, hematuria, urgency or incontinence of urine. Endocrine: denies excessive thirst or polyuria, cold or heat intolerance Musculoskeletal: No back pain, joint pain or stiffness, joint swelling Integumentary: No rash or pruritis. Neurologic: No confusion, numbness, tingling, or headache. Psychiatric: No anxiety. No depression. Physical Exam General: +Alert and oriented, Well nourished, No acute distress. Eye: Pupils are equal, round and reactive to light, Intact accommodation, Extraocular movements are intact, Normal conjunctiva, Vision unchanged. HENT: Normocephalic, Atraumatic, Tympanic membranes are clear, Normal hearing, Oral mucosa is moist, No pharyngeal erythema, Ear canals patent. Respiratory: Lungs CTA bilaterally, No wheeze, Respirations are non-labored. Cardiovascular: Regular rate, Regular rhythm, S1 auscultated, S2 auscultated, No murmur, Good pulses equal in all extremities, Normal peripheral perfusion, No edema. Gastrointestinal: Soft, Non-tender, Non-distended, Normal bowel sounds, No organomegaly. Musculoskeletal: Normal range of motion, Normal strength, No tenderness, No swelling, No deformity, Normal gait, except for limping due to calf pain. Integumentary: Warm, Dry, [place], Intact. Neurologic: Alert, Oriented, Normal sensory, Normal motor function, No focal defects, Cranial Nerves II-XII are grossly intact, Normal deep tendon reflexes. Psychiatric: Cooperative, Appropriate mood & affect, Normal judgment. Results - Labs: Pending PSA and additional blood work Assessment and Plan 1. Calf Muscle Strain - Educated on R.I.C.E (rest, ice, compression, elevation) measures to manage symptoms. - Recommended Tylenol for pain management. - Advised monitoring for signs of worsening symptoms such as increased swelling or uncontrolled pain. - Suggested follow-up if symptoms persist. 2. Essential Hypertension - Discussed concerns regarding current control of blood pressure; recent reading was 150/80 mmHg. - Advised daily monitoring of blood pressure at home. - Planned reassessment of blood pressure control in three months with recorded readings. - Consider potential medication adjustment based on home monitoring results. 3. Prostate Cancer, History of - Awaiting PSA results to monitor for recurrence. 4. Past Fracture of Vertebrae and Shoulder Surgeries - Monitor for any pain or discomfort related to previous injuries. 5. History of Echocardiogram (2020) - No significant follow-up needed as results were satisfactory. Plan Patient was informed and verbally consented to the use of an ambient scribe for clinic note documentation during this visit. 1. Calf Muscle Strain - Educated on the R.I.C.E therapy. - Suggested acetaminophen for pain; monitor symptoms for possible evaluation if symptoms persist. 2. Essential Hypertension - Discussed home Blood Pressure monitoring. - Plan detailed home monitoring; reassessment after three months, consider medication adjustments. 3. Prostate Cancer, History Of - Regular PSA monitoring. Discussion Notes I discussed the nature of the calf injury with the patient, emphasizing the importance of rest, ice, compression, and elevation to facilitate recovery. We talked about using Tylenol to manage the pain and the importance of observing for worsening symptoms, at which point emergency care might be required. I expressed concern over the patient's poorly controlled hypertension and recommended home blood pressure monitoring. I emphasized the need for follow-up in three months with recorded readings, prepared to reassess and potentially modify his medication regimen. I also reassured the patient about the planned blood work, including a PSA test, to monitor his history of prostate cancer. Consent was obtained for the discussed plan and monitoring. Patient Instructions - Apply ice and heat to the calf as needed and rest the leg. - Monitor blood pressure daily and keep a record of readings. - Take Tylenol for any pain. - Contact the clinic if symptoms evolve or intensify. - Go to get necessary blood work today, including PSA. - Follow-up in three months with recorded blood pressure readings. (2) Prostate CA: Comment: - Currently being monitored with PSA Code(s): C61 - Malignant neoplasm of prostate Category: Medical Plan: Order PSA Orders: Orders Complete Blood Count Auto Diff Today C61 - Malignant neoplasm of prostate Hemoglobin A1c Today C61 - Malignant neoplasm of prostate Lipid Panel Today C61 - Malignant neoplasm of prostate Vitamin D 25-OH Total Today C61 - Malignant neoplasm of prostate PSA,Total (Free>4and<10) Today C61 - Malignant neoplasm of prostate Comprehensive Met. Panel Today C61 - Malignant neoplasm of prostate TSH reflex Free T4 Today C61 - Malignant neoplasm of prostate
--- OUTSIDE RECORDS SUMMARY | 2025-03-18 07:56 | XMS_ITS | Clinical Summary ---
Author Organization [facility] Address [address] [place] [id number] Phone Care Team Providers Care Service Secretary Name Role Phone Rios Ibarra MD Primary Care Provider Allergies No known active allergies Medications lisinopril (PRINIVIL,ZEST RIL) 10 MG tablet Take 10 mg by mouth daily. Active niacinamide 500 mg tablet Take 1 tablet (500 mg total) by mouth 2 (two) times a day with meals. 60 tablet 11 3 Active fluorouraciL (EFUDEX) 5 % cream Compounded with calcipotriene 0.005% in cream; apply to affected area twice daily x 10 days until inflamed, then stop and apply vaseline twice daily 15 g 3 3 Active mupirocin (BACTROBAN) 2 % ointment Apply topically 3 (three) times a day. 22 g 3 Active cefadroxil (DURICEF) 500 MG capsule Take 1 capsule (500 mg total) by mouth 2 (two) times a day. For 7 days 14 capsule 3 Active Social History Tobacco Use Types Packs/Day Years Used Date Smoking Tobacco: Never Alcohol Use Standard Drinks/Week Comments Yes 0 (1 standard drink = 0.6 oz pur e alcohol) Education Answer Date Recorded Are you interested in more education? Not on tahira e 11/11/2022 Are you concerned about learning? Not on file 11/11/2022 No 11/11/2022 No 11/11/2022 Digital Access Answer Date Recorded No 12/10/2022 No 12/10/2022 No 12/10/2022 Reliable internet access at home? Not on file 12/10/2022 Device with a working camera? Not on file Sex and Gender Information Value Date Recorded Sex Assigned at Male 06/19/2020 11:11 PM EST Legal Sex Male 9:53 PM EDT Gender Identity Male 06/19/2020 11:11 PM EST Sexual Orientation Not on file Last Filed Vital Signs Vital Sign Reading Time Taken Comments Blood Pressure 135/89 06/20/2020 2:00 AM EST Pulse 81 06/20/2020 2:00 AM EST Temperature 36.3 C (97.3 F) 06/19/2020 10:47 PM EST Respiratory Rate 16 06/20/2020 2:00 AM EST Oxygen Saturation 96% 06/20/2020 2:00 AM EST Inhaled Oxygen Concentration - - Weight 89.8 kg (198 lb) 06/19/2020 10:47 PM EST Height 177.8 cm (5' 10 ) 06/19/2020 10:47 PM EST Body Mass Index 28.41 06/19/2020 10:47 PM EST Plan of Treatment Health Maintenance Due Date Last Done Comments Adult Td,Tdap Booster 1956 CREATININE LEVEL 1956 LIPID PANEL 1956 POTASSIUM LEVEL 1956 DEPRESSION SCREENING 1968 HEPATITIS C SCREENING 1974 SMOKING STATUS SCREENING (Once After 26 Yrs) 1982 COLOGUARD 2001 COLONOSCOPY 2001 COLORECTAL CANCER SCREENING 2001 FIT TEST 2001 FOBT 2001 SIGMOIDOSCOPY 2001 VIRTUAL COLONOSCOPY 2001 PNEUMOCOCCAL VACCINES (50+ years) (1 of 1 - PCV) 2006 ZOSTER VACCINES (1 of 2) 2006 INFLUENZA VACCINE (#1) 2025 2, 04/29/2021, 04/24/2020, Additional history exists COVID-19 VACCINE (2 - 2024- season) 2025 07/20/2021 RSV VACCINE (1 - 1-dose 75+ series) 11/01/2031 HEPATITIS A VACCINES Aged Out No long er eligible based on patient's age to complete this topic HIB VACCINES Aged Out No longer eligi ble based on patient's age to complete this topic MENINGOCOCCAL VACCINES (ACWY) Aged Out No longer eligible based on patient's age to complete this topic MENINGOCOCCAL VACCINES (B) Aged Out N o longer eligible based on patient's age to complete this topic Medical Devices Not on file [place] [address] [address] [place] [address] [place] [address] [place] [address] [place] [address] [place] [address] [address] [place] [address] [address] [place] [address] [address] [place] [address] [place] [address] [place] [address] [place] [address] [place] [address] [place] [address] [place] [address] PPO EPO [facility] Care Teams Service Secretary Relationship Specialty Start Date End Date Rios Ibarra MD [address] [place] [address] [place] [address] PCP - General Internal Medicine 09/22/22 Additional Source Comments The information contained in this document represents components of the legal health record. It is not the complete legal health record.[facility]
--- OUTSIDE RECORDS SUMMARY | 2025-03-18 07:56 | XMS_ITS | Encounter Summary ---
Author Organization [facility] Address [address] [place] [phone] Phone Care Team Providers Care Hoof And Shoe Inspector Name Role Phone Pcp, Unknown Primary Care Provider Rios Almaraz MD Primary Care Provider Encounter Details Date Type Department Care Team (Late st Contact Info) Description 06/19/2020 Procedure Pass [facility], Ct Scan - [facility] [address] [place] [address] Social History Tobacco Use Types Packs/Day Years Used Date Smoking Tobacco: Never Alcohol Use Standard Drinks/Week Comments Yes 0 (1 standard drink = 0.6 oz pur e alcohol) Sex and Gender Information Value Date Recorded Sex Assigned at Male 06/19/2020 11:11 PM EST Legal Sex Male 9:53 PM EDT Gender Identity Male 06/19/2020 11:11 PM EST Sexual Orientation Not on file documented as of this encounter Functional Status * Calculated C-SSRS Risk Score (Lifetime/Recent) Answer Date of Assessment Author No Risk Indicated 06/19/2020 11:06 PM EST Meghan Smyth, EZ * [place] Suicide Severity Rating Scale (Screener/Recent Self-Report) Question Answer Date of Assessment Author 1. Wish to be (Past 1 Month) No 06/19/2020 11:06 PM Noam Martinez, EZ 2. Non-Specific Active Suicidal Thoughts (Past 1 Month) No 06/19/2020 11:06 PM Noam Martinez, RN 6. Suicidal Behavior (Lifetime) No 06/19/2020 11:06 PM Noam Martinez RN documented as of this encounter Plan of Treatment Not on file documented as of this encounter Visit Diagnoses Not on filedocumented in this encounter Care Teams Hoof And Shoe Inspector Relationship Specialty Start Date End Date Pcp, Unknown PCP - General 06/19/20 09/21/22 Rios Ibarra MD [address] [place] [address] [place] [address] PCP - General Internal Medicine 09/22/22 documented as of this encounter Additional Source Comments The information contained in this document represents components of the legal health record. It is not the complete legal health record.[facility]
--- OUTSIDE RECORDS SUMMARY | 2025-03-18 07:56 | XMS_ITS | Encounter Summary ---
Author Organization [facility] Address [address] [place] [phone] Phone Care Team Providers Care Sign Language Interpreter Name Role Phone Pcp, Unknown Primary Care Provider Rios Almaraz MD Primary Care Provider Encounter Details Date Type Department Care Team (Late st Contact Info) Description 06/19/2020 Procedure Pass [facility], Ct Scan - [facility] [place] [facility] [place] [address] [place] [address] Social History Tobacco Use Types Packs/Day Years [...] 11:06 PM EST Meghan Smyth, EZ * [place] Suicide Severity Rating Scale (Screener/Recent Self-Report) Question [...] on filedocumented in this encounter Care Teams Sign Language Interpreter Relationship Specialty Start Date End Date Pcp, Unknown PCP - General 06/19/20 09/21/22 Rios Ibarra MD [address] [place] [address] [place] [address] PCP - General Internal Medicine 09/22/22 documented as of this encounter Additional Source Comments The information contained in this document represents components of the legal health record. It is not the complete legal health record.[facility]
--- OUTSIDE RECORDS SUMMARY | 2025-03-18 07:56 | XMS_ITS | Patient Health Record ---
Author Organization [facility] Address [address] [place] [address] Care Team Providers Care Cake Cutter Machine Name Role Phone Fred (RETIRED) Rios YANCEY Primary Care Provide r Unavailable Alejandro Benson Unavailable [phone] Allergies No Known Allergies Results Component Value Reference Range Notes Pathology (Not yet reviewed by provider) Interpretation: Performing Lab:[facility], [address] [place] [id number] Notes/Report: Reason For Referral No Information Medications Medication SIG (Take, Route, Fr equency, Duration) Notes Start Date End Date Status Lisinopril 10 MG 1 tablet Orally Once a day Active Immunizations Vaccine Route Administration Date Status Comme nts Influenza Unknown 04/16/2020 Administered Problems Problem Type SNOMED Code ICD Code Onset Dates Problem Status W/U Status Risk Notes Problem Colon cancer screening (Z12.11) Active confirmed Problem 452314657 Encounter for screening for malignant neoplasm of colon (Z12.11) Active confirmed Problem 889769827 History of adenomatous polyp of colon (Z86.010) Active confirmed Problem Diverticular disease of colon (697994748) Diverticulosis of large intestine without perforation or abscess without bleeding (K57.30) Active confirmed Problem Screening for malignant neoplasm of rectum (509676850) Encounter for screening for malignant neoplasm of rectum (Z12.12) Active confirmed Problem 70462408 Preprocedural examination (Z01.818) Active confirmed Problem 308518316 Family history o f colon cancer (Z80.0) Active confirmed Problem 497687666 Adenomatous poly p of colon, unspecified part of colon (D12.6) Active confirmed Vital Signs Blood pressure diastolic 00 mm Hg 05/23/2024 Height 70 in 05/23/2024 Blood pressure systolic 00 mm Hg 05/23/2024 Weight 207 lbs 05/23/2024 BMI 29.70 kg/m2 05/23/2024 Encounters Encounter Location Date Provider Diagnosis [facility] [address] [place], [place] [id number] 09/06/2024 Alejandro Benson Colon cancer screeni ng Z12.11 ; Personal history of colonic polyps Z86.0100 ; Family history of colon cancer Z80.0 ; Colon polyps K63.5 and Diverticulosis of large intestine without perforation or abscess without bleeding K57.30 [facility] [address] [place] [address] 05/23/2024 Alejandro Benson Preprocedural examination Z01.818 ; Family history of colon cancer Z80.0 ; History of adenomatous polyp of colon Z86.010 and Colon cancer screening Z12.11 Assessments Encounter Date Diagnosis (ICD Code) Assessment Notes Treatment Notes Treatment Clinical Notes Section Notes 09/06/2024 Colon cancer screening (ICD-10 - Z12.11) 09/06/2024 Personal history of colonic polyps (ICD-10 - Z86.0100) 05/23/2024 Preprocedural examination (ICD-10 - Z01.818) Overall, Tj appears quite well. I did recommend a followup colonoscopy for further screening given his history of adenomas, his last colonoscopy being over 3 years ago, and his significant family history of both parents having had colon cancer. We did review the rationale for this regard to colon cancer prevention. Full consent is obtained for this, including risks of bleeding and perforation. The procedure will be done with monitored anesthesia care. Tj was comfortable with this plan. Thank you again for allowing me to participate in Tj's care. I shall continue to keep you advised of his progress. 05/23/2024 Family history of colon cancer (ICD-10 - Z80.0) Overall, Tj appears quite well. I did recommend a followup colonoscopy for further screening given his history of adenomas, his last colonoscopy being over 3 years ago, and his significant family history of both parents having had colon cancer. We did review the rationale for this regard to colon cancer prevention. Full consent is obtained for this, including risks of bleeding and perforation. The procedure will be done with monitored anesthesia care. Tj was comfortable with this plan. Thank you again for allowing me to participate in Tj's care. I shall continue to keep you advised of his progress. 09/06/2024 Family history of colon cancer (ICD-10 - Z80.0) 05/23/2024 History of adenomatous polyp of colon (ICD-10 - Z86.010) Overall, Tj appears quite well. I did recommend a followup colonoscopy for further screening given his history of adenomas, his last colonoscopy being over 3 years ago, and his significant family history of both parents having had colon cancer. We did review the rationale for this regard to colon cancer prevention. Full consent is obtained for this, including risks of bleeding and perforation. The procedure will be done with monitored anesthesia care. Tj was comfortable with this plan. Thank you again for allowing me to participate in Tj's care. I shall continue to keep you advised of his progress. 09/06/2024 Colon polyps (ICD-10 - K63.5) 05/23/2024 Colon cancer screening (ICD-10 - Z12.11) Overall, Tj appears quite well. I did recommend a followup colonoscopy for further screening given his history of adenomas, his last colonoscopy being over 3 years ago, and his significant family history of both parents having had colon cancer. We did review the rationale for this regard to colon cancer prevention. Full consent is obtained for this, including risks of bleeding and perforation. The procedure will be done with monitored anesthesia care. Tj was comfortable with this plan. Thank you again for allowing me to participate in Tj's care. I shall continue to keep you advised of his progress. 09/06/2024 Diverticulosis of large intestine without perforation or abscess without bleeding (ICD-10 - K57.30) Plan Of Treatment Pending Test Test Name Order Date Pathology 09/06/2024 Future Test Test Name Order Date COLONOSCOPY 08/05/2015 COLONOSCOPY 09/22/2020 COLONOSCOPY 11/02/2020 COLONOSCOPY 05/23/2024 Insurance Providers Payer Name Payer Address Payer Phone Subscriber Number Group Number Insured Name Patient Relationship to Insured Coverage Start Date Coverage End Date [facility] [place] [address] [address] [place] [address] [id number] TJ BUENROSTRO Self - patient is the insured Medical (General) History Medical History History ICD Code Colonoscopy 06-18-2010 and 2 005-small tubular adenomas removed, sigmoid diverticulosis, internal hemorrhoids S/P prostate biopsy 07/2014 f or evaluation of an elevated PSA-he is meeting with Dr. Quinones on August 10, 2014 to review the results---turned out to be benign Denies MD,DM,CVA,Lung disease,renal dise ase HTN Followup screening colonoscopy was negat claudia in September of 2015. Colonoscopies in October and January of 2021 with removal of tubular adenomas. The second colonoscopy had to be done for removal of a tubular adenoma from the cecum which was in a difficult spot near the ileocecal valve. However, I was able to remove it entirely. Surgical History Surgery Date(Month/Year) Right Shoulder replacement surgery x 2 d ue to an injury at work Finger surgery--lost tip of middle doriane r on right hand
[2025-03-18 07:58] VITALS: BP 150/82; PULSE 78; RESP 17; TEMP 36.8; O2SAT 95; BMI 31.4
== END 2025-03-18 08:37 | disposition home or self-care (01) ==
LOC: HO.HMCHD 07:53
PROVIDERS: PCP Student in an Organized Health Care Education/Training Program; Visit Provider Student in an Organized Health Care Education/Training Program
DX: Z00.00 Encounter for general adult medical examination without abnormal findings (principal); I10 Essential (primary) hypertension; Z85.46 Personal history of malignant neoplasm of prostate

== ENCOUNTER 2025-03-18 08:28 | Outpatient (REF) | payer MEDICARE, SELFPAY ==
[2025-03-18 10:54] LABS: MANUAL DIFF FLAG NO
[2025-03-18 11:04] LABS: Hematocrit 41.9 % (42.0-52.0); Hemoglobin 14.0 g/dl (14.0-18.0); Imm Gran Abs Auto 0.04 X10*3/uL (0.00-0.03); Imm Gran Pct Auto 0.7 % (0.0-0.4); Lymphocytes Absolute Auto 1.3 X10*3/uL (1.2-4.9); Mean Corpuscular HGB Conc 33.4 g/dl (31.0-36.0); Mean Corpuscular Hemoglobin 31.7 pg (27.0-33.0); Mean Corpuscular Volume 95.0 fL (80.0-98.0); NRBC Abs Auto 0.000 X10*3/uL (0.0-0.012); NRBC Pct Auto 0.0 /100WBC (0.0-0.2); Platelet Count 266 X10*3/uL (160-400); Red Blood Count 4.41 X10*6/uL (4.60-5.80); White Blood Count 6.0 X10*3/uL (4.8-10.8)
[2025-03-18 11:41] LABS: PSA,Total (Free>4and<10) < 0.10 ng/mL (0.00-4.00)
[2025-03-18 11:50] LABS: Albumin Level 4.6 g/dL (3.5-5.0); Anion Gap 13 (12-20); Calcium 8.8 mg/dL (8.4-10.2); Carbon Dioxide 25 mmol/L (22-29); Chloride 109 mmol/L (96-108); Potassium 4.0 mmol/L (3.3-5.1); Sodium 143 mmol/L (135-145); Total Protein 6.9 g/dL (6.5-8.0); Triglycerides 140 mg/dL (<150)
[2025-03-18 13:24] LABS: Alanine Aminotransferase 24 U/L (0-40); Alkaline Phosphatase 50 U/L (39-117); Aspartate Amino Transferase 22 U/L (5-37); Blood Urea Nitrogen 17 mg/dL (9-16); Cholesterol 262 mg/dL (<200); Estimated Glomerular Filt Rate > 60; HDL Cholesterol 70 mg/dL (>40)
== END 2025-03-18 08:29 | disposition home or self-care (01) ==
LOC: HO.10HDL 08:28
PROVIDERS: Visit Provider Student in an Organized Health Care Education/Training Program
DX: Z12.5 Encounter for screening for malignant neoplasm of prostate (principal); C61 Malignant neoplasm of prostate; I10 Essential (primary) hypertension
CPT/HCPCS: 36415; 80053; 80061; 82306; 83036; 84153; 84443; 85025; 96127; 99387

== ENCOUNTER 2025-06-17 08:00 | Outpatient (AMB) | payer MEDICARE, SELFPAY ==
--- OUTSIDE RECORDS SUMMARY | 2025-06-17 08:03 | XMS_ITS | Clinical Summary ---
Author Organization [facility] Address [address] [place] [address] Phone Care Team Providers Care Director Of Income Tax Name Role Phone Rios Ibarra MD Primary [...] topic Medical Devices Not on file [place] [address] [place] [address] [address] [place] [address] [place] [address] [place] [address] [place] [address] [place] [address] [address] [place] [address] [address] [place] [address] [place] [address] [place] [address] PPO EPO [facility] Care Teams Director Of Income Tax Relationship Specialty Start Date End Date Rios Ibarra MD [address] [place] [address] [place] [address] PCP - General Internal Medicine 09/22/22 Additional Source Comments The information contained in this document represents components of the legal health record. It is not the complete legal health record.[facility]
--- OUTSIDE RECORDS SUMMARY | 2025-06-17 08:03 | XMS_ITS | Encounter Summary ---
Author Organization [facility] Address [address] [place] [address] Phone Care Team Providers Care Motion Picture Projectionist Name Role Phone Pcp, Unknown Primary Care Provider Rios Almaraz MD Primary Care Provider Encounter Details Date Type Department Care Team (Late st Contact Info) Description 06/19/2020 Procedure Pass [facility], Ct Scan - [facility] [address] [place] [address] Social History Tobacco Use Types Packs/Day Years [...] 11:06 PM EST Meghan Smyth, EZ * [place] Suicide Severity Rating Scale (Screener/Recent Self-Report) Question [...] on filedocumented in this encounter Care Teams Motion Picture Projectionist Relationship Specialty Start Date End Date Pcp, Unknown PCP - General 06/19/20 09/21/22 Rios Ibarra MD [address] [place] [address] [place] [address] PCP - General Internal Medicine 09/22/22 documented as of this encounter Additional Source Comments The information contained in this document represents components of the legal health record. It is not the complete legal health record.[facility]
--- OUTSIDE RECORDS SUMMARY | 2025-06-17 08:03 | XMS_ITS | Encounter Summary ---
Author Organization [facility] Address [address] [place] [address] Phone Care Team Providers Care Sal[employer] Officer Name Role Phone Pcp, Unknown Primary Care Provider Rios Almaraz MD Primary Care Provider Encounter Details Date Type Department Care Team (Late st Contact Info) Description 06/19/2020 Procedure Pass [facility], Ct Scan - [facility] [address] [place] [address] Social History Tobacco Use Types Packs/Day Years [...] 11:06 PM EST Meghan Smyth, EZ * [place] Suicide Severity Rating Scale (Screener/Recent Self-Report) Question [...] on filedocumented in this encounter Care Teams [employer] Officer Relationship Specialty Start Date End Date Pcp, Unknown PCP - General 06/19/20 09/21/22 Rios Ibarra MD [address] [place] [address] [place] [address] PCP - General Internal Medicine 09/22/22 documented as of this encounter Additional Source Comments The information contained in this document represents components of the legal health record. It is not the complete legal health record.[facility]
--- NOTE | 2025-06-17 08:10 | A.OFFPC_ITS ---
Vital Signs 06/17/25 08:13 Height 5 ft 10.67 in Weight 213 lb BMI 30.0 BP 132/84 Blood Pressure Location Lt brachial Position Sitting Respiration 18 Pulse 65 Pulse Source Pulse Oximeter Temp 98 F Temp Source Temporal Artery Scan Pulse Oximetry (%) 97 Oxygen Delivery Method Room Air Intake Visit Reasons: 3 month f/u Bingo Cashier Required: No Accompanied by: Self / Same As Patient Allergies No Known Allergies Allergy (Verified 06/17/25 08:10) Medication List - Last Reconciled 06/17/25 by Emory Ng MD lisinopril 1 tab PO DAILY rosuvastatin 20 mg PO DAILY 90 days Tobacco use date assessed: 03/18/25 HPI HPI Comments History of Present Illness Details History of Present Illness The patient is a 69 year old individual presenting for follow-up and management of hypertension and hypercholesterolemia. The patient has a history of hypertension, which is managed with lisinopril 10 mg. The patient monitors blood pressure at home, with recent readings noted as being decent, including values such as 115, 127, 131, 138, and 142. For hypercholesterolemia, the patient has been taking rosuvastatin 20 mg for the past three months. This was initiated after a previous lipid panel showed a total cholesterol of 262 mg/dL and an LDL cholesterol of 164 mg/dL. The patient reports feeling well on the medication. Other past lab results were noted to be normal, including PSA, vitamin D levels, thyroid function, liver function, and kidney function. The patient reported muscle cramping at a prior visit, which has since resolved and was attributed to physical work. The patient is a never-smoker and had a colonoscopy earlier this year. The patient has received a flu shot. Medical History: - Hypertension - Hypercholesterolemia - History of muscle cramping, resolved Medications: - Lisinopril 10 mg for hypertension, leticia en in the morning. - Rosuvastatin 20 mg for hypercholestero lemia, taken in the morning. Diagnostic Results: - Labs: - Previous lipid panel: Total cholestero l 262 mg/dL, LDL cholesterol 164 mg/dL. - Previous PSA: Less than 0.10. - Previous vitamin D level: Good. - Previous thyroid levels: Normal. - Previous liver function: Great. - Previous kidney function: Good. - Tests and Diagnostics: - Colonoscopy: Performed earlier this ye ar. Social History - Substance Use: The patient is a never- smoker. - Activity Level: The patient is encoura ged to remain active. [facility] Medical History (Updated 06/17/25 @ 08:39 by Emory Ng MD) Hyperlipidemia History of colon polyps HTN (hypertension) Surgical History (Updated 03/13/25 @ 16:28 by Mary Lima) History of surgical amputation of finger of right hand Hx of shoulder surgery Hx of colonoscopy (~09/06/24) Social History Housing: House Are you a primary youth care professional to a significant other at home: No Do you presently have visiting nurse or other home services: No Patient Tobacco Use Status: Never used Tobacco e-Cigarette/Vaping Use: Never Used Second Hand Smoke Exposure: No service: No Current occupational status: retired Questionnaire Thrive Questionnaire Date Thrive assessed: 03/18/25 AUDIT C Alcohol Use Questionnaire (AUDIT-C) 2. How many drinks containing alcohol do you have on a typical day when you are drinking?: 3 or 4 3. How often do you have six or more drinks on one occasion?: Less than monthly Total Score: 2 CHERY-7 AMB Questionnaire CHERY-7 Date CHERY - 7 assessed: 03/18/25 Source: Developed by Drs. Alejandro Chong, Charis Sanabria, Farhad Vicente and colleagues, with an educational jordan from [employer]. Review of Systems Narrative Review of Systems - General: Reports feeling good and denies any questions or concerns. - Gastrointestinal: Reports eating and drinking well. - Musculoskeletal: Denies muscle cramping; a previous issue has resolved. - Cardiovascular: Denies swelling. All systems reviewed & are unremarkable except as reviewed in HPI and above Physical exam (Primary Care) Vital Signs: Last Vital Signs Temp 98 F 06/17/25 08:13 Pulse 65 06/17/25 08:13 Resp 18 06/17/25 08:13 BP 132/84 06/17/25 08:13 Pulse Ox 97 06/17/25 08:13 Oxygen Delivery Method Room Air 06/17/25 08:13 BMI result Body Mass Index 30.0 Tobacco/Smoking Status: Tobacco use Status Tobacco use date assessed 03/18/25 06/17/25 08:16 Patient Tobacco Use Status Never used Tobacco 06/17/25 08:16 e-Cigarette/Vaping Use Never Used 06/17/25 08:16 Thrive Assessment: Date of Thrive Assessment Date Thrive assessed 03/18/25 06/17/25 08:16 Narrative Physical Exam General: Alert and oriented, Well nourished, No acute distress. Eye: Pupils are equal, round and reactive to light, Intact accommodation, Extraocular movements are intact, Normal conjunctiva, Vision unchanged. HENT: Normocephalic, Atraumatic, Tympanic membranes are clear, Normal hearing, Oral mucosa is moist, No pharyngeal erythema, Ear canals patent. Respiratory: Lungs CTA bilaterally, No wheeze, Respirations are non-labored. Cardiovascular: Regular rate, Regular rhythm, S1 auscultated, S2 auscultated, No murmur, Good pulses equal in all extremities, Normal peripheral perfusion, No edema. Gastrointestinal: Soft, Non-tender, Non-distended, Normal bowel sounds, No organomegaly. Musculoskeletal: Normal range of motion, Normal strength, No tenderness, No swelling, No deformity, Normal gait. Integumentary: Warm, Dry, [place], Intact. Neurologic: Alert, Oriented, Normal sensory, Normal motor function, No focal defects, Cranial Nerves II-XII are grossly intact, Normal deep tendon reflexes. Psychiatric: Cooperative, Appropriate mood & affect, Normal judgment. Coding Level of Care Code Est Pt Level 3 (00548) Complex visit Add On G2211 Diagnoses Primary hypertension I10 Hypertension type: primary hypertension Other hyperlipidemia E78.49 Hyperlipidemia type: other hyperlipidemia Prostate CA C61 Assessment & Plan Assessment & Plan (1) HTN (hypertension): Comment: - The patient's blood pressure is considered well-controlled with a current reading of 132/84 mmHg and satisfactory home blood pressure monitoring. - Continue lisinopril 10 mg daily. Code(s): I10 - Essential (primary) hypertension Category: Medical Qualifiers: Hypertension type: primary hypertension Qualified Code(s): I10 - Essential (primary) hypertension (2) Hyperlipidemia: Code(s): E78.5 - Hyperlipidemia, unspecified Category: Medical Qualifiers: Hyperlipidemia type: other hyperlipidemia Qualified Code(s): E78.49 - Other hyperlipidemia (3) Prostate CA: Comment: - Currently being monitored with PSA Code(s): C61 - Malignant neoplasm of prostate Category: Medical Plan: Health Maintenance: - Vaccinations: The patient has received the influenza vaccine and was advised to get a COVID-19 vaccine. - Screening: The patient had a colonoscopy earlier this year. - Healthy lifestyle: The patient was encouraged to stay active. - Follow-up: A physical exam is scheduled for six months, with blood work to be done one week prior. Patient was informed and verbally consented to the use of an ambient scribe for clinic note documentation during this visit. Plan I reviewed the patient's home blood pressure log, and we agreed that the lisinopril 10 mg is working well. We discussed the rosuvastatin 20 mg, which was started three months ago for high cholesterol (LDL 164, Total 262), and I explained that we will recheck the labs in about 8-9 months during the next physical to assess its efficacy. I informed the patient that other recent lab results, including PSA, vitamin D, thyroid, liver, and kidney function, were all good. I recommended receiving a COVID-19 vaccine. We scheduled a follow-up appointment in six months for a physical, and I provided instructions for obtaining blood work one week prior to that visit. Orders: Orders Complete Blood Count Auto Diff 6 Months Z00.00 - Encounter for general adult medical examination without abnormal findings Hemoglobin A1c 6 Months Z00.00 - Encounter for general adult medical examination without abnormal findings Hepatitis A,B,C Profile 6 Months Z00.00 - Encounter for general adult medical examination without abnormal findings Lipid Panel 6 Months Z00.00 - Encounter for general adult medical examination without abnormal findings Microalbumin, Random (w Creat) 6 Months Z00.00 - Encounter for general adult medical examination without abnormal findings Syphilis Screen 6 Months Z00.00 - Encounter for general adult medical examination without abnormal findings TSH reflex Free T4 6 Months Z00.00 - Encounter for general adult medical examination without abnormal findings Vitamin D 25-OH Total 6 Months Z00.00 - Encounter for general adult medical examination without abnormal findings Comprehensive Met. Panel 6 Months Z00.00 - Encounter for general adult medical examination without abnormal findings HIV Ab/Ag 6 Months Z00.00 - Encounter for general adult medical examination without abnormal findings Medications: Changed From lisinopril 1 tab PO DAILY To lisinopril 10 mg PO DAILY Patient Instructions: - Continue taking your lisinopril 10 mg and rosuvastatin 20 mg every morning. - Keep doing what you are doing to stay active. - It is recommended that you get a COVID-19 vaccine. - Your next appointment will be a physical exam in six months. - Please go for your blood tests one week before your next appointment. - You do not need a paper order for the blood tests; you can just walk into one of the listed lab locations.
[2025-06-17 08:13] VITALS: BP 132/84; PULSE 65; RESP 18; TEMP 36.6; O2SAT 97
== END 2025-06-17 08:35 | disposition home or self-care (01) ==
LOC: HO.HMCHD 08:01
PROVIDERS: PCP Internal Medicine; Visit Provider Student in an Organized Health Care Education/Training Program
DX: I10 Essential (primary) hypertension (principal); E78.49 Other hyperlipidemia; C61 Malignant neoplasm of prostate

== ENCOUNTER → 2025-06-17 08:00 | Outpatient (BNVA) | payer MEDICARE, SELFPAY | PROVIDERS: PCP Internal Medicine; Visit Provider Student in an Organized Health Care Education/Training Program | DX: I10 Essential (primary) hypertension (principal); E78.49 Other hyperlipidemia; C61 Malignant neoplasm of prostate | CPT/HCPCS: 99212 ==